=== PATIENT | female | born 1950 | race Native Hawaiian/Other Pacific Islander ===

== ENCOUNTER 2017-07-19 13:10 | Outpatient (CLI) | payer OTHER ==
--- NOTE | 2017-07-19 16:23 | Mammography Report ---
BONE DEXA:07/19/17 13:10:00 CLINICAL: Postmenopausal. COMPARISON: 12/11/15 TECHNIQUE: Two site bone DEXA performed on an Hologic scanner. FINDINGS: The average BMD of the lumbar spine L1-L4 is 0.611g/cm squared with a T-score of -4.0 and a Z-score of -2.1. This compares to 0.611g/cm squared on the last exam and represents a -14.9% change from the previous study. The average BMD of the left hip is 0.649g/cm squared with a T-score of -2.3 and a Z-score of -1.1. This compares to 0.711g/cm squared on the last exam and represents a -8.8% change from the previous study. IMPRESSION: 1. WHO classification: Osteoporosis with high fracture risk based on both spine and left hip measurements. 2. Moderate decline in both spine and left hip BMD compared to the last exam. RECOMMENDATION: Clinical correlation and routine screening. DEFINITIONS: BMD = Bone Mineral Density T-score = BMD related to mean peak bone mass of young adult (mean expressed in Standard Deviation) Z-score = Age matched BMD expressed in SD World Health Organization (WHO) Diagnostic Criteria Normal T-score > -1 SD Osteopenia T-score between -1 and -2.4 SD Osteoporosis T-score -2.5 SD or below NOTE: BMD is not the only risk factor for fracture; also consider factors such as the patient's age, risk of falling, previous osteoporotic fracture, family history of osteoporotic fractures, current smoker, and low body weight. Z-scores are not calculated if >80 years of age.
== END 2017-07-19 13:11 | disposition home or self-care (01) ==
LOC: SPVWC 13:10
PROVIDERS: ATTEND Obstetrics & Gynecology
DX: M81.0 Age-related osteoporosis without current pathological fracture (principal); Z78.0 Asymptomatic menopausal state
CPT/HCPCS: 77080